=== PATIENT | female | born 1995 | race Caucasian/White ===

== ENCOUNTER 2017-01-02 18:46 | Emergency (ER) | payer OTHER ==
[2017-01-02 18:53] VITALS: BP 136/61; PULSE 95; TEMP 98; BMI 21.5
--- NOTE | 2017-01-02 19:36 | PDOC ---
History of Present Illness - General Chief Complaint: Respiratory Stated Complaint: COLD SYMPTOMS Time Seen by Provider: 01/02/17 19:30 History Source: Patient Exam Limitations: No Limitations - History of Present Illness Initial Comments: CHIEF COMPLAINT: 21 y/o afebrile female with PMH asthma c/o cold symptoms since yesterday. HISTORY OF PRESENT ILLNESS: The patient states yesterday she began having a dry cough, runny nose and fever. She states today the front of her chest started hurting every time she coughs. She has been taking tylenol for the fever and has been using her albuterol nebulizer once daily since yesterday. She states she went to [facility] yesterday where they tested her for the flu and it was negative. They suggested supportive care measures and a z-pack for bronchitis but she did not fill the zpack. She is a smoker. Vital signs on arrival are notable for pulse of 95. REVIEW OF SYSTEMS: GENERAL/CONSTITUTIONAL: +fever. No weakness. No weight change. HEAD, EYES, EARS, NOSE AND THROAT: No change in vision. No ear pain or discharge. +sore throat. +runny nose. CARDIOVASCULAR: No chest pain or shortness of breath. RESPIRATORY: +dry cough. No wheezing or hemoptysis. GASTROINTESTINAL: No abd pain, nausea, vomiting, diarrhea. GENITOURINARY: No dysuria, frequency, or change in urination. MUSCULOSKELETAL: No joint or muscle swelling or pain. No neck or back pain. SKIN: No rash or easy bruising. NEUROLOGIC: No headache, vertigo, loss of consciousness, or loss of sensation. PHYSICAL EXAM: GENERAL: The patient is awake, alert, and fully oriented, in no acute distress. She is non toxic and well appearing. HEAD: Normal with no signs of trauma. NECK: No anterior cervical lymphadenopathy. ENT: Pupils equal, round and reactive to light, extraocular movements intact, sclera anicteric, conjunctiva clear. Posterior pharyngeal erythema without tonsilar edema or exudate noted. Uvula midline. LUNGS: Clear to auscultation bilaterally. No wheezing, rhonchi, rales or crackles. Normal excursion. No respiratory distress or use of accessory muscles. CV: RRR, S1/S2, no MRG. Cap refill < 2 sec. ABDOMEN: Soft, non-distended, non-tender even to deep palpation, no hepatomegaly or splenomegaly, no masses. EXTREMITIES: Normal range of motion, no edema. NEUROLOGICAL: Normal speech, normal gait. CN II-XII grossly intact. PSYCH: Normal mood, normal affect. SKIN: Warm, dry, normal turgor, no rashes or lesions noted. Past History - Past Medical History Allergies/Adverse Reactions: Allergies Allergy/AdvReac Type Severity Reaction Status Date / Time shellfish derived Allergy Hives Verified 01/02/17 18:50 Home Medications: Ambulatory Orders NK [No Known Home Medication] 01/22/16 Asthma: Yes - Reproductive History (#): 2 Para: 0 Spontaneous : 2 - Psycho/Social/Smoking Cessation Hx Anxiety: No Suicidal Ideation: No Smoking History: Current every day smoker Have you smoked in the past 12 months: No Number of Cigarettes Smoked Daily: 4 Information on smoking cessation initiated: No Hx Alcohol Use: No Drug/Substance Use Hx: No Substance Use Type: None *Physical Exam - Vital Signs Last Vital Signs Temp Pulse Resp BP Pulse Ox 98 F 95 H 18 136/61 100 01/02/17 18:50 01/02/17 18:50 01/02/17 18:50 01/02/17 18:50 01/02/17 18:50 Medical Decision Making - Medical Decision Making A/P: 21 y/o afebrile female with symptoms of URI for the past 2 days. The patient was seen at [facility] ER yesterday, tested negative for the flu and is here today because symptoms continue. Will run hcg and give tylenol PO. Reassured the patient she has a viral URI, and her symptoms could last up to 2 weeks. Suggested Motrin every 6 hours for fever/pain, robitussin for cough, albuterol nebs every 4 hours if needed, plenty of fluids and rest, and no smoking while sick. instructed her to return to the ER with any worsening or concerning symptoms. The patient verbalizes understanding of all instructions, has no further questions and is awaiting discharge. *DC/Admit/Observation/Transfer Diagnosis at time of Disposition: Upper respiratory infection Qualifiers: URI type: unspecified URI Qualified Code(s): J06.9 - Acute upper respiratory infection, unspecified - Discharge Dispostion Disposition: HOME Condition at time of disposition: Good - Patient Instructions Printed Discharge Instructions: DI for Viral Upper Respiratory Infection -- Adult Additional Instructions: Discharge Instructions: -Take 400mg of over the counter motrin for fever and pain every 6 hours with food -Take over the counter robitussin for cough -Use your nebulizer if needed for asthma symptoms every 4 hours -Drink plenty of fluids -Get plenty of rest -Do not smoke while you are recovering -Return to the ER with any worsening or concerning symptoms
[2017-01-02] MEDS ORDERED: ACETAMINOPHEN 325 MG TABLET (FP) PO ONE (21:12)
[2017-01-02] MEDS ORDERED: ACETAMINOPHEN 325 MG TABLET (FP) ONE (21:13)
== END 2017-01-02 21:20 | disposition home or self-care (01) ==
LOC: JERFT 18:46
DX: J06.9 Acute upper respiratory infection, unspecified (principal); B97.89 Other viral agents as the cause of diseases classified elsewhere
CPT/HCPCS: 84703; 99281-25

== ENCOUNTER 2017-04-11 12:28 | Emergency (ER) | payer OTHER ==
[2017-04-11 12:33] VITALS: BP 102/57; BMI 23.8
[2017-04-11] MEDS ORDERED: KETOROLAC TROMETHAMINE 30 MG/1 ML VIAL IVPUSH ONE (13:48)
[2017-04-11] MEDS ORDERED: SODIUM CHLORIDE 0.9% 500 ML INFUS.BAG IV ONE (13:48)
[2017-04-11] MEDS ORDERED: DEXAMETHASONE SOD PHOSPHATE 10 MG/1 ML VIAL IVPB ONE (13:48)
[2017-04-11 14:04] LABS: MCHC 32.7 g/dl (32.0-36.0); MEAN CELL VOLUME 91.6 fl (80-96); MEAN PLT VOLUME 7.4 fl (7.5-11.1); PLATELET COUNT 294 K/MM3 (134-434); WHITE BLOOD COUNT 15.6 K/mm3 (4.0-10.0)
[2017-04-11] MEDS ORDERED: IBUPROFEN 400 MG TABLET (FP) PO ONE ×2 (14:07→14:20)
[2017-04-11 14:09] LABS: URINE APPEARANCE SLCLOUDY; URINE BILIRUBIN NEGATIVE (NEGATIVE); URINE BLOOD NEGATIVE (NEGATIVE); URINE COLOR YELLOW; URINE GLUCOSE (UA) NEGATIVE (NEGATIVE); URINE KETONE 1+ (NEGATIVE); URINE NITRITE NEGATIVE (NEGATIVE); URINE PROTEIN NEGATIVE (NEGATIVE); URINE UROBILINOGEN NEGATIVE mg/dL (0.2-1.0)
[2017-04-11 14:11] LABS: URINE LEUK ESTERASE 2+ (NEGATIVE)
[2017-04-11 14:22] LABS: URINE MUCUS RARE; URINE RBC 2 /hpf (0-3); URINE WBC 15 /hpf (3-5)
[2017-04-11 14:33] LABS: ANION GAP 6 (8-16); CALCIUM 8.6 mg/dL (8.5-10.1); CO2 28 mmol/L (21-32); CREATININE 0.6 mg/dL (0.55-1.02); GLUCOSE,RANDOM 92 mg/dL (74-106)
[2017-04-11] MEDS ORDERED: DEXAMETHASONE SOD PHOSPHATE 10 MG/1 ML VIAL IM ONE (15:50)
[2017-04-11] MEDS ORDERED: DEXAMETHASONE SOD PHOSPHATE 10 MG/1 ML VIAL ONE (15:52)
--- NOTE | 2017-04-11 15:53 | PDOC ---
History of Present Illness - General Chief Complaint: Sore Throat Stated Complaint: SWOLLEN TONSILLS Time Seen by Provider: 04/11/17 13:30 History Source: Patient Exam Limitations: No Limitations - History of Present Illness Initial Comments: 04/11/17 15:55 CC sore throat with swollen tonsils; this has happen multiple times wo ENT evaluation; with fever Timing/Duration: 24 hours Severity: severe Associated Symptoms: reports: fever/chills, malaise. denies: chest pain, cough , diaphoresis, nausea/vomiting, rash Past History - Past Medical History Allergies/Adverse Reactions: Allergies Allergy/AdvReac Type Severity Reaction Status Date / Time shellfish derived Allergy Hives Verified 04/11/17 12:31 Home Medications: Ambulatory Orders Penicillin V Potassium [Pen Vee K -] 500 mg PO TID #21 tablet 04/11/17 Asthma: Yes - Reproductive History (#): 2 Para: 0 Spontaneous : 2 - Psycho/Social/Smoking Cessation Hx Anxiety: No Suicidal Ideation: No Smoking History: Current every day smoker Have you smoked in the past 12 months: Yes Number of Cigarettes Smoked Daily: 9 Information on smoking cessation initiated: No Hx Alcohol Use: No Drug/Substance Use Hx: No Substance Use Type: None Review of Systems - Review of Systems Constitutional: Yes: Chills, Fever, Malaise HEENTM: Yes: Nose Pain, Throat Pain, Throat Swelling, Mouth Pain. No: Nose Congestion, Nose Bleeding, Hearing Loss Respiratory: No: Symptoms reported, Cough, Wheezing Cardiac (ROS): No: Symptoms Reported ABD/GI: No: Symptoms Reported, Nausea, Vomiting *Physical Exam - Vital Signs Last Vital Signs Temp Pulse Resp BP Pulse Ox 100.8 F H 121 H 18 102/57 100 04/11/17 12:31 04/11/17 12:31 04/11/17 12:31 04/11/17 12:31 04/11/17 12:31 - Physical Exam General Appearance: Yes: Appropriately Dressed. No: Apparent Distress HEENT: positive: Tonsillar Exudate, Tonsillar Erythema, Nasal Congestion, Other (large kissing tonsils bilateral with exudate). negative: Normal ENT Inspection , TMs Normal, Rhinorrhea, Sinus Tenderness Neck: positive: Lymphadenopathy (R), Lymphadenopathy (L) Respiratory/Chest: positive: Lungs Clear. negative: Accessory Muscle Use ED Treatment Course - LABORATORY CBC & Chemistry Diagram: 04/11/17 14:00 04/11/17 14:00 - ADDITIONAL ORDERS Additional order review: Laboratory Results 04/11/17 04/11/17 14:00 14:00 Sodium 134 L Potassium 4.2 Chloride 100 Carbon Dioxide 28 Anion Gap 6 L BUN 9 Creatinine 0.6 Random Glucose 92 Calcium 8.6 Urine Color Yellow Urine Appearance Slcloudy Urine pH 5.0 Urine Protein Negative Urine Glucose (UA) Negative Urine Ketones 1+ H Urine Blood Negative Urine Nitrite Negative Urine Bilirubin Negative Urine Urobilinogen Negative Ur Leukocyte Esterase 2+ H Urine RBC 2 Urine WBC 15 Ur Epithelial Cells Few Urine Mucus Rare Urine HCG, Qual Negative 04/11/17 14:00 Group A Strep Rapid Antigen - Final Throat 04/11/17 14:00 RBC 4.32 MCV 91.6 MCHC 32.7 RDW 14.0 MPV 7.4 L - Medications Given in the ED: ED Medications Discontinued Medications Generic Name Dose Route Start Last Admin Trade Name Freq PRN Reason Stop Dose Admin Dexamethasone Sodium Phosphate 10 mg 04/11/17 13:48 04/11/17 14:00 Decadron Injection - IVPB 04/11/17 13:49 Not Given ONCE ONE Ibuprofen 400 mg 04/11/17 14:07 04/11/17 14:21 Motrin - PO 04/11/17 14:08 400 mg ONCE ONE Administration Ketorolac Tromethamine 30 mg 04/11/17 13:48 04/11/17 14:01 Toradol Injection - IVPUSH 04/11/17 13:49 Not Given ONCE ONE Sodium Chloride 1,000 ml 04/11/17 13:48 04/11/17 14:00 Normal Saline - IV 04/11/17 13:49 Not Given ONCE ONE Medical Decision Making - Medical Decision Making 04/11/17 15:58 feeling much better post motrin and decadron; will suggest follow up with ENT YUVAL *DC/Admit/Observation/Transfer Diagnosis at time of Disposition: Recurrent acute tonsillitis - Discharge Dispostion Disposition: HOME Condition at time of disposition: Stable Admit: No - Prescriptions Prescriptions: Penicillin V Potassium [Pen Vee K -] 500 mg PO TID #21 tablet - Referrals Referrals: Carroll Khalil MD [Staff Physician] - - Patient Instructions Additional Instructions: please call and see Dr Remi BARAKAT for reevaluation of reoccuring swollen tonsils; gargle; motrin 400mg for pain and fever - Post Discharge Activity Work/School Note: Back to Work
[2017-04-11 15:58] VITALS: PULSE 112; TEMP 98.7
== END 2017-04-11 16:13 | disposition home or self-care (01) ==
LOC: JERFT 12:28
PROC: 3E023GC Introduction of Other Therapeutic Substance into Muscle, Percutaneous Approach (ICD-10-PCS; principal; 2017-04-11)
DX: J03.91 Acute recurrent tonsillitis, unspecified (principal); F17.210 Nicotine dependence, cigarettes, uncomplicated
CPT/HCPCS: 36415; 80048; 81003; 81015; 84703; 85027; 86308; 87070; 87430; 99282-25

== ENCOUNTER 2017-09-25 14:01 | Emergency (ER) | payer OTHER ==
[2017-09-25 14:06] VITALS: BP 102/60; TEMP 98.4; BMI 22.3
--- NOTE | 2017-09-25 18:58 | PDOC ---
History of Present Illness <RoberSarah Carrie - Last Filed: 09/25/17 19:20> - General History Source: Patient Exam Limitations: No Limitations - History of Present Illness Initial Comments: 09/25/17 21:19 Patient is a 22 year old female with a significant past medical history of Asthma, Respitory acid reflux, who presents to the ED with complaints of diffuse abdominal pain that began 2 weeks ago. Patient reports experiencing chronic diffuse abdominal pain that began 2 weeks ago suddenly. She reports eating bland food and drinking no alcohol for 4 days after initial pain began with no relief. She reports experiencing multiple episodes of vomiting since 5am this morning, stating only acid was coming up. Patient states she experienced intermittent diarrhea 2 weeks ago for about 4 days before subsiding. Patient states she saw her PCP sunday as well as yesterday and initially thought pain to be due to pancreatitis and was referred to see GI specialist Dr. Steward for abdominal pain. Patient states she took test this morning and results indicated negative. She currently wants a Drs note and GI follow up, and currently denies any lab work to be done. Denies chest pain, Sob. Denies fever, chills. Denies constipation, dysuria, hematuria. Denies contact with sick individuals, out of state travel. Denies any other symptoms. Allergies: Shellfish Social history: Current smoker. Current alcohol use. No illicit drugs. Surgical history: None PMD: Not on staff. <Yadiel Perdomo - Last Filed: 09/25/17 21:24> - General Chief Complaint: Pain Stated Complaint: ABD PAIN/ PCP SENT Time Seen by Provider: 09/25/17 17:58 Past History - Past Medical History Asthma: Yes COPD: No - Reproductive History (#): 2 Para: 0 Spontaneous : 2 - Suicide/Smoking/Psychosocial Hx Smoking History: Never smoked Have you smoked in the past 12 months: Yes Number of Cigarettes Smoked Daily: 9 Information on smoking cessation initiated: No Hx Alcohol Use: No Drug/Substance Use Hx: No Substance Use Type: None <RoberSarahramiro Butler - Last Filed: 09/25/17 19:20> <Yadiel Perdomo - Last Filed: 09/25/17 21:24> - Past Medical History Allergies/Adverse Reactions: Allergies Allergy/AdvReac Type Severity Reaction Status Date / Time shellfish derived Allergy Hives Verified 04/11/17 12:31 Home Medications: Ambulatory Orders Penicillin V Potassium [Pen Vee K -] 500 mg PO TID #21 tablet 04/11/17 Pantoprazole Sodium [Protonix -] 40 mg PO DAILY #7 tablet.ec 09/25/17 Review of Systems - Review of Systems Able to Perform ROS?: Yes Comments:: 09/25/17 21:23 CONSTITUTIONAL: Absent: fever, chills, diaphoresis, generalized weakness, malaise, loss of appetite HEENT: Absent: rhinorrhea, nasal congestion, throat pain, throat swelling, difficulty swallowing, mouth swelling, ear pain, eye pain, visual Changes CARDIOVASCULAR: Absent: chest pain, syncope, palpitations, irregular heart rate, lightheadedness , peripheral edema RESPIRATORY: Absent: cough, shortness of breath, dyspnea with exertion, orthopnea, wheezing, stridor, hemoptysis GASTROINTESTINAL: +Abdominal pain. +nausea. +Vomiting. Absent: abdominal distension, constipation, melena, hematochezia GENITOURINARY: Absent: dysuria, frequency, urgency, hesitancy, hematuria, flank pain, genital pain MUSCULOSKELETAL: Absent: myalgia, arthralgia, joint swelling SKIN: Absent: rash, itching, pallor HEMATOLOGIC/IMMUNOLOGIC: Absent: easy bleeding, easy bruising, lymphadenopathy, frequent infections ENDOCRINE: Absent: unexplained weight gain, unexplained weight loss, heat intolerance, cold intolerance NEUROLOGIC: Absent: headache, focal weakness or paresthesias, dizziness, unsteady gait, seizure, mental status changes, bladder or bowel incontinence PSYCHIATRIC: Absent: anxiety, depression, suicidal or homicidal ideation, hallucinations. All Other Systems: Reviewed and Negative <Yadiel Perdomo - Last Filed: 09/25/17 21:24> *Physical Exam - Vital Signs Last Vital Signs Temp Pulse Resp BP Pulse Ox 98.4 F 73 18 102/60 100 09/25/17 14:04 09/25/17 14:04 09/25/17 14:04 09/25/17 14:04 09/25/17 14:04 <Sarah Richter - Last Filed: 09/25/17 19:20> - Vital Signs Last Vital Signs Temp Pulse Resp BP Pulse Ox 98.4 F 71 18 102/60 100 09/25/17 19:32 09/25/17 19:32 09/25/17 19:32 09/25/17 19:32 09/25/17 19:32 - Physical Exam Comments: 09/25/17 21:24 GENERAL: Well developed, well nourished. Awake and alert. No acute distress. HEENT: Normocephalic, atraumatic. PERRLA, EOMI. No conjunctival pallor. Sclera are non- icteric. Moist mucous membranes. Oropharynx is clear. NECK: Supple. Full ROM. No JVD. Carotid pulses 2+ and symmetric, without bruits. No thyromegaly. No lymphadenopathy. CARDIOVASCULAR: Regular rate and rhythm. No murmurs, rubs, or gallops. Distal pulses are 2+ and symmetric. PULMONARY: No evidence of respiratory distress. Lungs clear to auscultation bilaterally. No wheezing, rales or rhonchi. ABDOMINAL: Soft. Non-tender. Non-distended. No rebound or guarding. No organomegaly. Normoactive bowel sounds. MUSCULOSKELETAL Normal range of motion at all joints. No bony deformities or tenderness. No CVA tenderness. EXTREMITIES: No cyanosis. No clubbing. No edema. No calf tenderness. SKIN: Warm and dry. Normal capillary refill. No rashes. No jaundice. NEUROLOGICAL: Alert, awake, appropriate. Cranial nerves 2-12 intact. No deficits to light touch and temperature in face, upper extremities and lower extremities. No motor deficits in the in face, upper extremities and lower extremities. Normoreflexic in the upper and lower extremities. Normal speech. Toes are down-going bilaterally. Gait is normal without ataxia. PSYCHIATRIC: Cooperative. Good eye contact. Appropriate mood and affect. <Yadiel Perdomo - Last Filed: 09/25/17 21:24> Medical Decision Making - Medical Decision Making 09/25/17 19:16 22 yo female with 2 week h/o acid reflex and abd blaoting is currently eating and drinking coffee. she is not in any distress -she has seen by her PCP twice in last week for same complaint and she was referred to GI DR Steward -she is refusing lab work and states she took a OTC test and it was negative -she states she just wants to leave to go to work and she needs a note for work -abd exam benign imp gerd RX protonoix plan keep appt with communications systems engineer <Sarah Richter - Last Filed: 09/25/17 19:20> *DC/Admit/Observation/Transfer <Sarah Richter - Last Filed: 09/25/17 19:20> - Attestations Scribe Attestion: 09/25/17 21:24 Documentation prepared by Yadiel Perdomo, acting as medical record clerk for Sarah Richter MD/DO. <Yadiel Perdomo - Last Filed: 09/25/17 21:24> Diagnosis at time of Disposition: GERD (gastroesophageal reflux disease) Qualifiers: Esophagitis presence: with esophagitis Qualified Code(s): K21.0 - Gastro- esophageal reflux disease with esophagitis - Discharge Dispostion Disposition: HOME Condition at time of disposition: Stable - Prescriptions Prescriptions: Pantoprazole Sodium [Protonix -] 40 mg PO DAILY #7 tablet.ec - Referrals Referrals: Hung Steward MD [Staff Physician] - - Patient Instructions Printed Discharge Instructions: DI for Gastroesophageal Reflux Disease (GERD) Additional Instructions: please followup with the communications systems engineer return for worsening symptoms 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
[2017-09-25 19:33] VITALS: PULSE 71
== END 2017-09-25 21:02 | disposition home or self-care (01) ==
LOC: JER 14:01
DX: K21.0 Gastro-esophageal reflux disease with esophagitis (principal)
CPT/HCPCS: 99281-25

== ENCOUNTER 2017-10-24 12:12 | Emergency (ER) | payer SELFPAY ==
[2017-10-24 12:24] VITALS: BP 110/63; PULSE 110; TEMP 98.6; BMI 23.8
--- NOTE | 2017-10-24 13:41 | PDOC ---
History of Present Illness - General Chief Complaint: Respiratory Stated Complaint: FEVER, BACK PAIN Time Seen by Provider: 10/24/17 13:17 History Source: Patient Exam Limitations: No Limitations - History of Present Illness Initial Comments: 10/24/17 13:40 22 year old female with no surgical history and history of asthma present with reports of sorethroat, fever, nausea and productive cough x 3 days. States taking tylenol cold and sinus with no complete relief. 10/24/17 13:45 Timing/Duration: reports: getting worse Severity: reports: mild Possible Cause: Yes: unknown cause Modifying Factors: improves with: other (tylenol cold and sinus) Aspirin Received prior to arrival: Yes: no aspirin today ASA Contraindications(Core Measure): No: Allergy Beta Sofi Contraindications(Core Measure): No: Not Prescribed Beta Sofi Given by EMS(Core Measure): No Beta Sofi Taken at Home(Core Measure): No Beta Sofi Not Indicated at this Time(Core Measure): No Past History - Travel Traveled outside of the country in the last 30 days: No Close contact w/someone who was outside of country & ill: No - Past Medical History Allergies/Adverse Reactions: Allergies Allergy/AdvReac Type Severity Reaction Status Date / Time shellfish derived Allergy Hives Verified 10/24/17 12:24 Home Medications: Ambulatory Orders Guaifenesin Dm [Robitussin Dm -] 10 ml PO Q4H #10 cup 10/24/17 Ibuprofen 600 mg PO TID #30 tablet 10/24/17 Asthma: Yes COPD: No - Reproductive History (#): 2 Para: 0 Spontaneous : 2 - Suicide/Smoking/Psychosocial Hx Smoking History: Current every day smoker Have you smoked in the past 12 months: Yes Number of Cigarettes Smoked Daily: 2 Information on smoking cessation initiated: No Hx Alcohol Use: No Drug/Substance Use Hx: No Substance Use Type: None Review of Systems - Review of Systems Able to Perform ROS?: Yes Is the patient limited Amharic proficient: No Constitutional: Yes: Fever, Malaise. No: Chills HEENTM: Yes: Throat Pain. No: Nose Congestion, Difficulty Swallowing Respiratory: No: Orthopnea, Wheezing Cardiac (ROS): No: Chest Pain, Edema ABD/GI: No: Nausea, Poor Appetite, Poor Fluid Intake : No: Burning, Incontinence Musculoskeletal: No: Muscle Weakness Integumentary: No: Bruising, Erythema *Physical Exam - Vital Signs Last Vital Signs Temp Pulse Resp BP Pulse Ox 98.6 F 110 H 20 110/63 98 10/24/17 12:21 10/24/17 12:21 10/24/17 12:21 10/24/17 12:21 10/24/17 12:21 - Physical Exam General Appearance: Yes: Nourished, Appropriately Dressed. No: Apparent Distress HEENT: positive: Pharyngeal Erythema, Tonsillar Erythema Neck: positive: Supple. negative: Lymphadenopathy (R), Lymphadenopathy (L) Respiratory/Chest: positive: Lungs Clear, Normal Breath Sounds. negative: Respiratory Distress Cardiovascular: positive: Regular Rhythm, Regular Rate, S1, S2 Extremity: positive: Normal Capillary Refill Neurologic: positive: medical laboratory scientist II-XII NML intact, Fully Oriented, Alert Medical Decision Making - Medical Decision Making 10/24/17 13:49 22 year old female with flu-like symptoms x 3 days rapid strep and throat culture sent *DC/Admit/Observation/Transfer Diagnosis at time of Disposition: Upper respiratory infection Qualifiers: URI type: unspecified viral URI Qualified Code(s): J06.9 - Acute upper respiratory infection, unspecified - Discharge Dispostion Disposition: HOME Condition at time of disposition: Good Admit: No - Prescriptions Prescriptions: Guaifenesin Dm [Robitussin Dm -] 10 ml PO Q4H #10 cup Ibuprofen 600 mg PO TID #30 tablet - Referrals - Patient Instructions Printed Discharge Instructions: DI for Viral Upper Respiratory Infection -- Adult Additional Instructions: Please drink plenty fluids, rest -call primary physician for follow up appointment -Take ibuprofen or tylenol for fever -return to emergency department for worsening symptoms - Post Discharge Activity Forms/Work/School Notes: Back to Work
== END 2017-10-24 15:22 | disposition home or self-care (01) ==
LOC: JERFT 12:12
DX: J06.9 Acute upper respiratory infection, unspecified (principal)
CPT/HCPCS: 87070; 87430; 99281-25

== ENCOUNTER 2019-10-07 21:29 | Emergency (ER) | payer OTHER ==
[2019-10-07 21:34] VITALS: BMI 22.8
--- NOTE | 2019-10-08 00:40 | PDOC ---
Attending Attestation - Resident Resident Name: Jay Flanagan - ED Attending Attestation I have performed the following: I have examined & evaluated the patient, The case was reviewed & discussed with the resident, I agree w/resident's findings & plan - HPI HPI: 10/08/19 03:31 see resident hpi - Physicial Exam PE: 10/08/19 03:31 see resident exam - Medical Decision Making 10/08/19 03:31 24-year-old female with pelvic pressure and hematuria Ultrasound of the pelvis as well as CT scan were performed Patient has a right ureteral stone, 4 mm as well as left intrarenal stone Patient will be given Rocephin and Zithromax, GC and Chlamydia cultures pending at patient's request She will be discharged on Keflex and follow-up with urology
--- NOTE | 2019-10-08 00:49 | PDOC ---
History of Present Illness - General Chief Complaint: Hematuria Stated Complaint: HEMATURIA/VOMITING Time Seen by Provider: 10/08/19 00:31 - History of Present Illness Initial Comments: 10/08/19 00:43 Ms. Silva is a 24 yo female w/ pmh of Asthma and GERD who presents for evaluation of 1 1/2 month history of L Lower quadrant abdominal pain. Patient reports she has additionally had 4 days of hematuria. Patient presented to OB/ [facility] who checked her for STD's and recommended outpatient US however patient was unable to complete. Ms. Silva also endorses intermittent diarrhea over this time period as well. Denies other symptoms at this time. The patient denies chest pain, shortness of breath, headache and dizziness. Denies fever, chills, nausea, vomit, and constipation. Past History - Past Medical History Allergies/Adverse Reactions: Allergies Allergy/AdvReac Type Severity Reaction Status Date / Time shellfish derived Allergy Hives Verified 10/07/19 21:34 Home Medications: Ambulatory Orders Cephalexin [Keflex] 500 mg PO BID #14 capsule 10/08/19 NK [No Known Home Medication] 10/08/19 Phenazopyridine HCl [Pyridium] 200 mg PO TID #6 tablet 10/08/19 Asthma: Yes COPD: No - Reproductive History (#): 2 Para: 0 Spontaneous : 2 - Psycho Social/Smoking Cessation Hx Smoking History: Never smoked Have you smoked in the past 12 months: Yes Number of Cigarettes Smoked Daily: 2 Hx Alcohol Use: No Drug/Substance Use Hx: No Substance Use Type: None Review of Systems - Review of Systems Comments:: 10/08/19 00:49 GENERAL/CONSTITUTIONAL: No fever or chills. No weakness. HEAD, EYES, EARS, NOSE AND THROAT: No change in vision. No ear pain or discharge. No sore throat. CARDIOVASCULAR: No chest pain or shortness of breath RESPIRATORY: No cough, wheezing, or hemoptysis. GASTROINTESTINAL: +Frequent Diarrhea. LLQ abdominal pain. No nausea, vomiting, or constipation. GENITOURINARY: +Hematuria w/ change in vaginal odor reported. MUSCULOSKELETAL: No joint or muscle swelling or pain. No neck or back pain. SKIN: No rash NEUROLOGIC: No headache, vertigo, loss of consciousness, or change in strength/ sensation. ENDOCRINE: No increased thirst. No abnormal weight change HEMATOLOGIC/LYMPHATIC: No anemia, easy bleeding, or history of blood clots. ALLERGIC/IMMUNOLOGIC: No hives or skin allergy. *Physical Exam - Vital Signs Last Vital Signs Temp Pulse Resp BP Pulse Ox 97.5 F L 61 18 101/45 L 98 10/07/19 21:31 10/07/19 21:31 10/07/19 21:31 10/07/19 21:31 10/07/19 21:31 - Physical Exam 10/08/19 00:50 GENERAL: Awake, alert, and fully oriented, in no acute distress HEAD: No signs of trauma, normocephalic, atraumatic EYES: PERRLA, EOMI, sclera anicteric, conjunctiva clear ENT: Auricles normal inspection, hearing grossly normal, nares patent, oropharynx clear without exudates. Moist mucosa NECK: Normal ROM, supple, no lymphadenopathy, JVD, or masses LUNGS: No distress, speaks full sentences, clear to auscultation bilaterally HEART: Regular rate and rhythm, normal S1 and S2, no murmurs, rubs or gallops, peripheral pulses normal and equal bilaterally. ABDOMEN: Soft, nontender, normoactive bowel sounds. No guarding, no rebound. No masses EXTREMITIES: Normal inspection, Normal range of motion, no edema. No clubbing or cyanosis. NEUROLOGICAL: Cranial nerves II through XII grossly intact. Normal speech, normal gait, no focal sensorimotor deficits SKIN: Warm, Dry, normal turgor, no rashes or lesions noted. VAGINAL: +AC tenderness noted. No CMT, no masses, no blood in vaginal vault. Physiologic discharge noted. ED Treatment Course - LABORATORY CBC & Chemistry Diagram: 10/08/19 00:42 10/08/19 00:42 - RADIOLOGY Radiology Studies Ordered: Category Date Time Status TRANSVAGINAL ULTRASOUND US [US] Stat Ultrasound 10/08/19 00:39 Ordered Medical Decision Making - Medical Decision Making 10/08/19 02:57 Ms. Silva is a 24 yo female w/ pmh as described who presents for evaluation of symptoms concerning for torsion vs. infection vs. nephrolithiasis. Patient evaluated with labs/US/CT. US normal. CT significant for 4mm R UPJ stone w/out hydro as well as small L renal stone. 10/08/19 03:27 Patient UA significant for mild UTI as below. Patient ABX sent. Patient will f/ u w/ urology as needed for further evaluation. Discharging to home. Discharge - Discharge Information Problems reviewed: Yes Clinical Impression/Diagnosis: Nephrolithiasis Disposition: HOME - Additional Discharge Information Prescriptions: Cephalexin [Keflex] 500 mg PO BID #14 capsule Phenazopyridine HCl [Pyridium] 200 mg PO TID #6 tablet - Follow up/Referral Referrals: Carroll Petersen MD [Staff Physician] - - Patient Discharge Instructions Patient Printed Discharge Instructions: DI for Kidney Stones Additional Instructions: You were evaluated today in the ER for your pain and found to have a small UTI as well as kidney stones. We sent antibiotics to your pharmacy. Please take all medications as proscribed. Return to ER if any further pain, fever, chills, or other concerning symptoms. - Post Discharge Activity
[2019-10-08 01:20] LABS: EPI CELLS 4.5 /HPF (0-5/HPF); HYALINE CASTS 1 /lpf (0-8); PH,URINE 7.5 (5.0-8.0); URINE APPEARANCE CLEAR; URINE BACTERIA 119.4 /hpf (NEGATIVE); URINE BILIRUBIN NEGATIVE (NEGATIVE); URINE COLOR YELLOW; URINE GLUCOSE (UA) NEGATIVE (NEGATIVE); URINE KETONE NEGATIVE (NEGATIVE); URINE LEUK ESTERASE 1+ (NEGATIVE); URINE NITRITE NEGATIVE (NEGATIVE); URINE PROTEIN NEGATIVE (NEGATIVE); URINE RBC 3 /hpf (0-4); URINE UROBILINOGEN 0.2 mg/dL (0.2-1.0); URINE WBC 11 /hpf (0-5)
[2019-10-08 01:21] LABS: BASO % 0.3 % (0-2.0); EOS % 4.6 % (0-4.5); HEMOGLOBIN 13.2 GM/dL (10.7-15.3); LYMPH % 55.2 % (8-40); MCH 31.8 pg (25.7-33.7); MCHC 33.8 g/dl (32.0-36.0); MEAN CELL VOLUME 94.2 fl (80-96); MEAN PLT VOLUME 8.8 fl (7.5-11.1); MONO % 7.3 % (3.8-10.2); NEUT % 32.6 % (42.8-82.8); PLATELET COUNT 240 K/MM3 (134-434); RBC 4.14 M/mm3 (3.60-5.2); RDW 13.3 % (11.6-15.6); WHITE BLOOD COUNT 5.8 K/mm3 (4.0-10.0)
[2019-10-08] MEDS ORDERED: SODIUM CHLORIDE 1,000 ML IV STA (01:37)
[2019-10-08 01:40] LABS: ALBUMIN 3.8 g/dl (3.4-5.0); BILIRUBIN,TOTAL 0.4 mg/dL (0.2-1); BLOOD UREA NITROGEN 12.6 mg/dL (7-18); CALCIUM 8.8 mg/dL (8.5-10.1); CREATININE 0.8 mg/dL (0.55-1.3); TOT PROT 7.4 g/dl (6.4-8.2)
[2019-10-08] MEDS ORDERED: KETOROLAC TROMETHAMINE 30 MG/1 ML VIAL IVPUSH ONE (03:03)
[2019-10-08] MEDS ORDERED: KETOROLAC TROMETHAMINE 30 MG/1 ML VIAL ONE (03:22)
[2019-10-08] MEDS ORDERED: AZITHROMYCIN 500 MG TABLET PO ONE (03:30)
[2019-10-08] MEDS ORDERED: CEFTRIAXONE 1,000 MG in DEXTROSE 5%-WATER - 50 ML IVPB ONE (03:30)
[2019-10-08] MEDS ORDERED: CEFTRIAXONE 1 GM/50 ML BAG ONE (03:31)
[2019-10-08] MEDS ORDERED: AZITHROMYCIN 250 MG TABLET ONE (03:31)
[2019-10-08 03:42] VITALS: BP 112/65; PULSE 62; TEMP 98
== END 2019-10-08 03:50 | disposition home or self-care (01) ==
LOC: JER 21:29
PROC: 3E0337Z Introduction of Electrolytic and Water Balance Substance into Peripheral Vein, Percutaneous Approach (ICD-10-PCS; principal; 2019-10-07)
PROC: 3E03329 Introduction of Other Anti-infective into Peripheral Vein, Percutaneous Approach (ICD-10-PCS; 2019-10-07)
PROC: 3E0333Z Introduction of Anti-inflammatory into Peripheral Vein, Percutaneous Approach (ICD-10-PCS; 2019-10-07)
DX: N39.0 Urinary tract infection, site not specified (principal); N20.0 Calculus of kidney; Z91.013 Allergy to seafood
CPT/HCPCS: 36415; 74176-TC; 76830-TC; 80053; 81003; 84703; 85025; 87086; 87491; 87591; 96361; 96365; 96375; 99283-25; J7030

== ENCOUNTER 2019-10-14 19:04 | Emergency (ER) | payer OTHER ==
--- NOTE | 2019-10-14 20:09 | PDOC ---
Rapid Medical Evaluation Time Seen by Provider: 10/14/19 20:03 Medical Evaluation: Allergies Allergy/AdvReac Type Severity Reaction Status Date / Time shellfish derived Allergy Hives Verified 10/07/19 21:34 10/14/19 20:05 Pt presents for back pain. She was diagnosed with a Kidney stone on 10/08/19. She is still having a lot of pain and blood in her urine. She was supposed to have a procedure with Dr. Boston, but it was delayed bc pt took ibuprofen. Here for blood work and repeat CT? Exam: R CVA tenderness Orders: labs, urine Pt to proceed to the ER for further evaluation Discharge Disposition - Diagnosis Kidney stone - Referrals - Patient Instructions - Post Discharge Activity
[2019-10-14] MEDS ORDERED: SODIUM CHLORIDE 1,000 ML IV STA (20:10)
[2019-10-14 20:11] VITALS: TEMP 98.4; BMI 21.9
[2019-10-14] MEDS ORDERED: ACETAMINOPHEN 1000 MG/100 ML VIAL (NON FORMULARY) IVPB ONE (20:12)
--- NOTE | 2019-10-14 21:54 | PDOC ---
History of Present Illness - General Chief Complaint: Hematuria Stated Complaint: BLOOD WORK/CAT SCAN Time Seen by Provider: 10/14/19 20:03 History Source: Patient Exam Limitations: No Limitations - History of Present Illness Initial Comments: 24 year old female with PMH nephrolithiasis, asthma presented to ED for right sided flank pain and hematuria x6 days. Pt reported she was seen and evaluated at [facility] 10/08/19, was diagnosed with a right sided kidney stone and UTI, was discharged with antibiotics and urology F/U. She reported she has been taking ibuprofen for the pain. She reported that she was seen by Urology, Dr. Petersen today, was told that she will require lithotripsy, was scheduled for . She was scheduled to have outpatient blood work and CT performed tomorrow, but expressed to Dr. Petersen her persistent pain, prompting him to send her to the Emergency Department "for blood work and a repeat cat scan". She reported she was later told she will be unable to have the lithotripsy performed because she has been taking ibuprofen, and she is required to not take it for 7 days. She denied fever, chills, nausea, vomiting, diarrhea , chest pain, shortness of breath, dysuria. ROS General: denied fever, chills, generalized weakness. HEENT: denied sore throat, rhinorrhea, ear pain. Cardiovascular: denied chest pain, palpitations, syncope, diaphoresis. Respiratory: denied shortness of breath, cough, sputum production, hemoptysis. Gastrointestinal: denied abdominal pain, nausea, vomiting, diarrhea, constipation, blood in stool. Genitourinary: admitted to flank pain, hematuria. denied dysuria, increased urinary frequency, urinary incontinence. Back: denied back pain. Musculoskeletal: denied joint pain, muscle pain, joint swelling. Neurological: denied headache, dizziness, numbness, tingling, weakness. Integumentary: denied rash, laceration, abrasion. Hematologic/Lymphatic: denied bruising or bleeding. PE Constitutional: Well-nourished, Well-developed, appearing stated age. ambulatory. HEENT: head is normocephalic, atraumatic. EOMI. PERRLA. Neck: supple. Full ROM. Cardiovascular: regular heart rhythm. Normal S1 and S2. no murmurs. no pericardial friction rub. Respiratory: clear to auscultation bilaterally. no crackles, rhonchi or wheezing. no stridor. Gastrointestinal: soft, flat, nontender. normal bowel sounds. no rebound, guarding, or masses. Back: positive right sided CVA tenderness. Extremities: peripheral pulses intact and equal. no lower extremity edema noted. Neurological: CN 2-12 grossly intact. moves all four extremities. Psych: awake, alert, oriented x3. follows commands. answers questions appropriately. Past History - Past Medical History Allergies/Adverse Reactions: Allergies Allergy/AdvReac Type Severity Reaction Status Date / Time shellfish derived Allergy Hives Verified 10/07/19 21:34 Home Medications: Ambulatory Orders Cephalexin [Keflex] 500 mg PO BID #14 capsule 10/08/19 Phenazopyridine HCl [Pyridium] 200 mg PO TID #6 tablet 10/08/19 Ondansetron [Zofran Odt -] 4 mg SL TID PRN #9 od.tablet 10/15/19 Oxycodone HCl/Acetaminophen [Percocet 5-325 mg Tablet] 1 tab PO BID PRN #20 tablet MDD 2 tabs 10/15/19 - Psycho Social/Smoking Cessation Hx Number of Cigarettes Smoked Daily: 2 *Physical Exam - Vital Signs Last Vital Signs Temp Pulse Resp BP Pulse Ox 98.4 F 65 20 118/72 97 10/14/19 20:03 10/14/19 20:03 10/14/19 20:03 10/14/19 20:03 10/14/19 20:03 ED Treatment Course - LABORATORY CBC & Chemistry Diagram: 10/14/19 23:05 10/14/19 23:05 Medical Decision Making - Medical Decision Making 24 year old female with above PMH presented to ED for persistent right sided flank pain and hematuria s/p being diagnosed with a right sided 4 mm UPJ stone 10/08/19, sent to ED by Urology Dr. Singh for blood work and CT imaging. Initial Vital Signs Temp Pulse Resp BP Pulse Ox 98.4 F 65 20 118/72 97 10/14/19 20:03 10/14/19 20:03 10/14/19 20:03 10/14/19 20:03 10/14/19 20:03 Afebrile. No tachycardia. No tachypnea. No hypotension. No hypoxia on room air. Labs ordered: CBC, CMP, coags, UA/UC Imaging ordered: CT abdomen/pelvis spiral Medications ordered: tylenol IV, normal saline bolus 1000 cc once Chart review performed. 10/14/19 23:32 Urine Color Yellow 10/14/19 22:30 Urine Appearance Cloudy 10/14/19 22:30 Urine pH 7.0 (5.0-8.0) 10/14/19 22:30 Ur Specific Boykins 1.010 (1.010-1.035) 10/14/19 22:30 Urine Protein Negative (NEGATIVE) 10/14/19 22:30 Urine Glucose (UA) Negative (NEGATIVE) 10/14/19 22:30 Urine Ketones Negative (NEGATIVE) 10/14/19: Urine Blood 3+ (NEGATIVE) H 10/14/19 22:30 Urine Nitrite Negative (NEGATIVE) 10/14/19 22:30 Urine Bilirubin Negative (NEGATIVE) 10/14/19: Urine Urobilinogen 1.0 mg/dL (0.2-1.0) 10/14/19 22:30 Ur Leukocyte Esterase Negative (NEGATIVE) 10/14/19 22:30 Urine WBC (Auto) 1 /hpf (0-5) 10/14/19 22:30 Urine RBC (Auto) 118 /hpf (0-4) 10/14/19 22:30 Urine Casts (Auto) 0 /lpf (0-8) 10/14/19 22:30 U Epithel Cells (Auto) 0.8 /HPF (0-5/HPF) 10/14/19 22:30 Urine Bacteria (Auto) 19.6 /hpf (NEGATIVE) 10/14/19 22:30 Urine HCG, Qual Negative 10/14/19 22:30 10/14/19 23:39 Pt is ambulatory, able to climb in and out of bed without difficulty. 10/14/19 23:58 CBC WBC 5.2 K/mm3 (4.0-10.0) 10/14/19 23:05 RBC 4.02 M/mm3 (3.60-5.2) 10/14/19 23:05 Hgb 12.6 GM/dL (10.7-15.3) 10/14/19 23:05 Hct 37.7 % (32.4-45.2) 10/14/19 23:05 MCV 93.7 fl (80-96) 10/14/19 23:05 MCH 31.4 pg (25.7-33.7) 10/14/19 23:05 MCHC 33.5 g/dl (32.0-36.0) 10/14/19 23:05 RDW 13.4 % (11.6-15.6) 10/14/19 23:05 Plt Count 237 K/MM3 (134-434) 10/14/19 23:05 MPV 8.5 fl (7.5-11.1) 10/14/19 23:05 Absolute Neuts (auto) 2.4 K/mm3 (1.5-8.0) 10/14/19 23:05 Neutrophils % 46.3 % (42.8-82.8) D 10/14/19 23:05 Lymphocytes % 41.5 % (8-40) H D 10/14/19 23:05 Monocytes % 9.0 % (3.8-10.2) 10/14/19 23:05 Eosinophils % 2.9 % (0-4.5) 10/14/19 23:05 Basophils % 0.3 % (0-2.0) 10/14/19 23:05 Nucleated RBC % 0 % (0-0) 10/14/19 23:05 CMP Sodium 138 mmol/L (136-145) 10/14/19 23:05 Potassium 4.2 mmol/L (3.5-5.1) 10/14/19 23:05 Chloride 106 mmol/L (98-107) 10/14/19 23:05 Carbon Dioxide 24 mmol/L (21-32) 10/14/19 23:05 Anion Gap 8 MMOL/L (8-16) 10/14/19 23:05 BUN 8.9 mg/dL (7-18) 10/14/19 23:05 Creatinine 0.7 mg/dL (0.55-1.3) 10/14/19 23:05 Est GFR (CKD-EPI)AfAm 141.54 10/14/19 23:05 Est GFR (CKD-EPI)NonAf 122.12 10/14/19 23:05 Random Glucose 94 mg/dL (74-106) 10/14/19 23:05 Calcium 9.2 mg/dL (8.5-10.1) 10/14/19 23:05 Total Bilirubin 0.5 mg/dL (0.2-1) 10/14/19 23:05 AST 13 U/L (15-37) L 10/14/19 23:05 ALT 20 U/L (13-61) 10/14/19 23:05 Alkaline Phosphatase 100 U/L (45-117) 10/14/19 23:05 Total Protein 7.8 g/dl (6.4-8.2) 10/14/19 23:05 Albumin 4.0 g/dl (3.4-5.0) 10/14/19 23:05 10/15/19 01:06 CT report: Referring Physician: GAVINO HDEZ Comments: Alvino London MD wrote on Oct 15, 2019 at 12:40 AM: Referring Physician: GAVINO HDEZ Patient Name: TIM BEY THIS IS A PRELIMINARY REPORT FROM [facility] DATE OF SERVICE: 2019-10-14 23:27:52 IMAGES: 420 EXAM: CT abdomen pelvis without contrast HISTORY: Right flank pain COMPARISON: 10/08/19 FINDINGS: Lung bases are clear. The visualized cardiac chambers are normal size and configuration. The previously noted 4 mm proximal right UPJ stone has only progressed minimally distally but there is increasing mild hydronephrosis. No change in small left renal stone. Normal unenhanced liver, gallbladder, pancreas, spleen, adrenal glands . The stomach and abdominal small and large bowel are normal. There is no aortic aneurysm. There is no significant retroperitoneal lymphadenopathy. adnexal structures are normal. Urinary bladder is unremarkable. There is no pelvic free fluid. No discrete pelvic lymphadenopathy is identified. IMPRESSION: Only slight progression of a 4 mm proximal right ureteral stone with increasing, but still mild hydronephrosis. Small left renal stone. One or more of the following dose reduction techniques were used: automated exposure control, adjustment of the mA and/or kV according to patient size, use of iterative reconstructive technique. THIS DOCUMENT HAS BEEN ELECTRONICALLY SIGNED Phillip London MD 10/15/2019 00:39 EST M.D. Please call [facility] [phone] ([phone]) with questions. Alvino London MD Clinicians - Please contact [facility] with further questions at [phone] ([phone]) Patients - Please contact your Ordering Provider with questions. Pt provided with copies of results. No AMPARO, no UTI, pt appears well, stable for discharge at this time. Pt given return precautions. Pt advised to call urology today. Will prescribe percocet for pain. Advised to take extra strength tylenol for pain. Labs/CT report faxed to [phone]. Pt requested 1 percocet prior to discharge. She reported she is taking a cab home. Discharge - Discharge Information Problems reviewed: Yes Clinical Impression/Diagnosis: Kidney stone Condition: Stable Disposition: HOME - Admission No - Additional Discharge Information Prescriptions: Ondansetron [Zofran Odt -] 4 mg SL TID PRN #9 od.tablet PRN Reason: Nausea Oxycodone HCl/Acetaminophen [Percocet 5-325 mg Tablet] 1 tab PO BID PRN #20 tablet MDD 2 tabs PRN Reason: Pain Level 7 - 10 - Follow up/Referral - Patient Discharge Instructions Patient Printed Discharge Instructions: DI for Kidney Stones Additional Instructions: Follow up with your urologist within 3 days regarding your Emergency Room visit. Your care is not complete until you follow up. Bring all paperwork given to you today to your appointment. It is recommended you call your urologist in the morning and let him know the results. Take Tylenol over the counter for pain. Take as advised on label. Return to the Emergency Department for increasing pain, fever, vomiting, lightheadedness, chest pain, shortness of breath, passing out, or any other new , worsening or concerning symptoms. I have sent a prescription for Zofran (anti-nausea) to your pharmacy. Take as needed as advised on label. I have sent a prescription for Percocet to your pharmacy. Take as advised on label. Do not drive or operate heavy machinery while taking. Take Extra Strength Tylenol over the counter throughout the day for pain. Take as advised on label. - Post Discharge Activity Work/Back to School Note: Back to Work
--- NOTE | 2019-10-14 22:12 | PDOC ---
Attending Attestation - Resident Resident Name: Josefa Gil - ED Attending Attestation I have performed the following: I have examined & evaluated the patient, The case was reviewed & discussed with the resident, I agree w/resident's findings & plan, Exceptions are as noted - HPI HPI: 10/14/19 22:10 24-year-old female was diagnosed with a 4 mm stone right UVJ on October 07 and had follow-up appointment with Dr. Petersen today. Upon arriving at the office she explained that she still had pain and hematuria and had been taking ibuprofen. Dr. Petersen said he could not do the lithotripsy because she has been on NSAIDs and she should have stopped the NSAIDs 7 days prior to procedure. Initially she is supposed to have a CAT scan stone protocol done as an outpatient tomorrow but because she is increasing symptomatic she came to the emergency department - Physicial Exam PE: 10/14/19 23:22 wnwd 24 yo female with c/o hematuria and rt flank pain head ncat neck supple lungs cta b/l cvs [id number] abd nontedner rt cva tenderness skin warm and dry neuro axox3,ambulatory - Medical Decision Making 10/14/19 22:12 History of 4 mm right UVJ stone with hematuria and pain Dr. Petersen wants a repeat CAT scan following a stone protocol, UA and labs 10/15/19 01:[address] showed there has been little movement of the 4 mm stone it moved slightly distally from his placement on October 07 ,it's still near the UVJ and there is mild hydronephrosis Patient wrote for pain medications and will again follow-up with Dr. Petersen
[2019-10-14] MEDS ORDERED: ACETAMINOPHEN INJECTION 100 ML IVPB ONE (22:57)
[2019-10-14 23:05] LABS: EPI CELLS 0.8 /HPF (0-5/HPF); HYALINE CASTS 0 /lpf (0-8); URINE APPEARANCE CLOUDY; URINE BACTERIA 19.6 /hpf (NEGATIVE); URINE BILIRUBIN NEGATIVE (NEGATIVE); URINE COLOR YELLOW; URINE GLUCOSE (UA) NEGATIVE (NEGATIVE); URINE KETONE NEGATIVE (NEGATIVE); URINE LEUK ESTERASE NEGATIVE (NEGATIVE); URINE NITRITE NEGATIVE (NEGATIVE); URINE PROTEIN NEGATIVE (NEGATIVE); URINE RBC 118 /hpf (0-4); URINE WBC 1 /hpf (0-5)
[2019-10-14 23:31] LABS: BASO % 0.3 % (0-2.0); EOS % 2.9 % (0-4.5); HEMATOCRIT 37.7 % (32.4-45.2); HEMOGLOBIN 12.6 GM/dL (10.7-15.3); LYMPH % 41.5 % (8-40); MCH 31.4 pg (25.7-33.7); MCHC 33.5 g/dl (32.0-36.0); MEAN CELL VOLUME 93.7 fl (80-96); MEAN PLT VOLUME 8.5 fl (7.5-11.1); NEUT % 46.3 % (42.8-82.8); PLATELET COUNT 237 K/MM3 (134-434); RBC 4.02 M/mm3 (3.60-5.2); RDW 13.4 % (11.6-15.6); WHITE BLOOD COUNT 5.2 K/mm3 (4.0-10.0)
[2019-10-14 23:56] LABS: BILIRUBIN,TOTAL 0.5 mg/dL (0.2-1); BLOOD UREA NITROGEN 8.9 mg/dL (7-18); CALCIUM 9.2 mg/dL (8.5-10.1); CREATININE 0.7 mg/dL (0.55-1.3); INR 1.06 (0.83-1.09); POTASSIUM 4.2 mmol/L (3.5-5.1); PROTHROMBIN TIME (PATIENT) 12.5 SEC (9.7-13.0); TOT PROT 7.8 g/dl (6.4-8.2)
[2019-10-15 01:43] VITALS: BP 110/78; PULSE 69
== END 2019-10-15 01:41 | disposition home or self-care (01) ==
LOC: JER 19:04
PROC: 3E033NZ Introduction of Analgesics, Hypnotics, Sedatives into Peripheral Vein, Percutaneous Approach (ICD-10-PCS; principal; 2019-10-14)
DX: N20.0 Calculus of kidney (principal)
CPT/HCPCS: 36415; 74176-TC; 80053; 81003; 84703; 85025; 85610; 87086; 96374; 99285-25; J0131; J7030

== ENCOUNTER 2019-10-17 10:20 | Inpatient (IN) | payer OTHER ==
[2019-10-17] MEDS ORDERED: SODIUM CHLORIDE 1,000 ML IV STA (11:05)
[2019-10-17] MEDS ORDERED: morphine CARPU-JECT 4 MG/1 ML DISP.SYRIN IVPUSH ONE ×2 (11:19→15:41)
[2019-10-17] MEDS ORDERED: morphine SULFATE 4 MG/ML VIAL ONE ×2 (12:07→16:24)
--- NOTE | 2019-10-17 12:18 | EKG ---
Test Reason : Blood Pressure : / mmHG Vent. Rate : 055 BPM Atrial Rate : 055 BPM P-R Int : 154 ms QRS Dur : 104 ms QT Int : 400 ms P-R-T Axes : 041 065 046 degrees QTc Int : 382 ms SINUS BRADYCARDIA RSR' OR QR PATTERN IN V1 SUGGESTS RIGHT VENTRICULAR CONDUCTION DELAY WHEN COMPARED WITH ECG OF 27-MAY-2015 18:18, VENT. RATE HAS DECREASED BY 29 BPM Confirmed by ARTIE MILLER MD ([id number]) on 10/17/2019 12:18:02 PM Referred By: Confirmed By:ARTIE MILLER MD
[2019-10-17 12:25] LABS: BASO % 0.3 % (0-2.0); HEMATOCRIT 36.7 % (32.4-45.2); HEMOGLOBIN 12.5 GM/dL (10.7-15.3); LYMPH % 30.1 % (8-40); MCH 31.9 pg (25.7-33.7); MEAN CELL VOLUME 93.9 fl (80-96); MEAN PLT VOLUME 8.3 fl (7.5-11.1); MONO % 6.5 % (3.8-10.2); NEUT % 61.1 % (42.8-82.8); PLATELET COUNT 213 K/MM3 (134-434); RBC 3.91 M/mm3 (3.60-5.2); RDW 13.3 % (11.6-15.6)
[2019-10-17 12:39] LABS: INR 1.13 (0.83-1.09); PROTHROMBIN TIME (PATIENT) 13.3 SEC (9.7-13.0)
[2019-10-17 12:42] LABS: ACTIVATED PTT 34.7 SECONDS (25.2-36.5)
--- NOTE | 2019-10-17 12:47 | PDOC ---
Documentation entered by Brittaney Wong SCRIBE, acting as scribe for Zahraa Torres MD. Zahraa Torres MD: This documentation has been prepared by the Marvin barrios Nirvannie, SCRIBE, under my direction and personally reviewed by me in its entirety. I confirm that the documentation accurately reflects all work, treatment, procedures, and medical decision making performed by me. History of Present Illness - General Chief Complaint: Pain Stated Complaint: PAIN Time Seen by Provider: 10/17/19 11:04 History Source: Patient Exam Limitations: No Limitations - History of Present Illness Initial Comments: 10/17/19 12:10 HPI: 24-year-old female with h/o asthma, kidney stones, was diagnosed with obstructed 4 mm stone right UVJ on October 08 s/p lithotripsy with Dr Petersen yesterday, and GERD (s/p endoscopy) who presents to the ED with, persistent lower abdominal pain and hematuria. As per patient, she was evaluated in the ED initially 10/08 at which time she was diagnosed to have a 4mm R UPJ stone, nonobstructing left renal stone, and hydronephrosis on CT and UTI (prescribed Keflex BID x 7 days). Patient was evaluated once again on the for persistent pain and hematuria. Patient at that time had a repeat CT scan which depicted progression within the R UPJ and worsening hydronephrosis. Patient at that time was discharged on Percocet and Zofran with urology follow-up. She notes to have had a lithotripsy yesterday and since her procedure she has been experiencing persistent pain and hematuria described as large clots. Patient notes taking her Percocet for pain relief, however, it only alleviates her pain for approximately an hour. She notes waking up today with pain worse than yesterday or prior to lithotripsy. She notes taking Percocet and Zofran, with minimal relief (only lasts approximately an hour). Patient notes one episode of low grade/subjective fevers and chills yesterday (Tmax 100F) which has since been resolved and mild nausea. Patient was advised to refrain from NSAID usage a week prior and post lithotripsy. Patient is currently on the monthly Depo shot thus, notes she cannot be . She denies any dysuria. Denies chest pain, SOB, palpitation, dizziness, weakness , V, D, bladder and bowel problems, leg swelling, +recent lithotripsy/instrumentation Allergies: Shellfish Past Medical History: asthma, kidney stones, was diagnosed with obstructed 4 mm stone right UVJ on October 08 s/p lithotripsy with Dr Petersen yesterday, and GERD (s/p endoscopy) Social history: Lives with family. No tobacco, ETOH or drug use. Surgical history: Endoscopy Meds: as documented in EMR Urologist: Dr. Petersen Review of systems: Constitutional: + fevers + chills. HEENT: no headache +dizziness. CVS: no cp or syncope. Resp: no sob. No cough. Gastrointestinal: + abdominal pain. + nausea. no vomiting. no diarrhea Genitourinary: + hematuria. MUSCULOSKELETAL: No joint pain and swelling. No neck or back pain. SKIN: no redness or skin changes, no discharge, no rash. No wounds. Hematologic: no easy bruising/bleeding. NEUROLOGIC: No headache, LOC or altered mental status. No weakness, numbness or tingling. Psych: no anxiety or depression Allergic/Immunologic: no allergies All other systems reviewed and negative, or as documented in HPI. Physical Exam: General: Well appearing, awake and alert, NAD. HEENT: NCAT, PERRL, EOMI, clear conjunctiva, anicteric, moist mucous membranes , clear oropharynx, no oral lesions.. Neck: neck supple, FROM Resp: CTAB, normal and even respirations, no respiratory distress CVS: RRR, no murmurs, 2+ peripheral pulses throughout, no peripheral edema Abdomen: soft, nondistended, no rebound or guarding. +right CVAT. +right flank TTP. Back: nontender, normal inspection and ROM, +right CVAT MSK: no edema, ULLOA x4, ROM intact. No clubbing or cyanosis. normal bulk and tone. Extremities: no calf tenderness Neuro: alert Skin: warm and well perfused, cap refill <2 sec, normal color, no rash, no pallor 10/17/19 12:41 Past History - Past Medical History Allergies/Adverse Reactions: Allergies Allergy/AdvReac Type Severity Reaction Status Date / Time shellfish derived Allergy Hives Verified 10/17/19 10:29 Home Medications: Ambulatory Orders Oxycodone HCl/Acetaminophen [Percocet 5-325 mg Tablet] 1 tab PO BID PRN #4 tablet MDD 2 tabs 10/15/19 Asthma: Yes COPD: No GI Disorders: Yes (acid reflux) - Surgical History Abdominal Surgery: Yes (lithotripsy) - Reproductive History (#): 2 Para: 0 Spontaneous : 2 - Psycho Social/Smoking Cessation Hx Smoking History: Unknown if ever smoked Have you smoked in the past 12 months: Yes Number of Cigarettes Smoked Daily: 2 Hx Alcohol Use: No Drug/Substance Use Hx: No Substance Use Type: None *Physical Exam - Vital Signs Last Vital Signs Temp Pulse Resp BP Pulse Ox 98.3 F 78 20 93/63 99 10/17/19 10:31 10/17/19 10:31 10/17/19 10:31 10/17/19 10:31 10/17/19 10:31 Heart Score/ECG Review #1 ECG reviewed & interpreted by me at: 11:45 General ECG Interpretation: Sinus Rhythm, Normal Intervals 10/17/19 13:08 EKG sinus bradycardia 55 bpm, no interval abnormalities, narrow QRS, ST and T wave segments and morphology normal. Can be normal finding for otherwise healthy young patient ED Treatment Course - LABORATORY CBC & Chemistry Diagram: 10/17/19 11:55 10/17/19 11:55 - ADDITIONAL ORDERS Additional order review: Laboratory Results 10/17/19 11:55 PT with INR 13.30 H INR 1.13 H 10/17/19 11:55 RBC 3.91 MCV 93.9 MCHC 34.0 RDW 13.3 MPV 8.3 Neutrophils % 61.1 D Lymphocytes % 30.1 D Monocytes % 6.5 Eosinophils % 2.0 Basophils % 0.3 - Medications Given in the ED: ED Medications Discontinued Medications Generic Name Dose Route Start Last Admin Trade Name Freq PRN Reason Stop Dose Admin Sodium Chloride 1,000 mls @ 1,000 mls/hr 10/17/19 11:05 10/17/19 12:24 Normal Saline - IV 10/17/19 12:04 1,000 mls/hr ASDIR STA Administration Morphine Sulfate 4 mg 10/17/19 11:19 10/17/19 12:24 Morphine Injection - IVPUSH 10/17/19 11:20 4 mg ONCE ONE Administration Medical Decision Making - Medical Decision Making 10/17/19 12:43 Vital Signs Temp Pulse Resp BP Pulse Ox 98.3 F 78 20 93/63 99 10/17/19 10:31 10/17/19 10:31 10/17/19 10:31 10/17/19 10:31 10/17/19 10:31 DDx abdominal pain: Renal colic, biliary colic, metabolic/electrolyte derangements. GERD, PUD, esophageal spasm, pancreatitis, hepatitis, constipation , colitis, gastroenteritis, cholecystitis, UTI, pyelonephritis, ileus, SBO, medication side effect, hernia, appendicitis, diverticulitis, mesenteric ischemia. msk strain, mesenteric adenitis, psoas abscess. Clinically the patient presents with symptomatic ureterolithiasis (kidney stones ), with known right UPJ stone measuring 4mm, x 2 ED visits, s/p lithotripsy yesteday with Dr Najera. IV pain medications, antiemetics, and IV fluids were given. A CT Abdomen/Pelvis was done and repeated twice last on 10/14/19, which showed worsening obstruction/right UPJ stone 4mm, hence the lithotripsy yesterday, procedure uncomplicated. The patient's labs were significant for normal wbc ct and cr funciton.. With pain medication the patient improved significantly. 10/17/19 15:55 CT 4 mm nonobstructing left renal pole stone similar position. Right proximal ureteral stone just distal to the UPJ unchanged measuring 3 mm as well, slightly decreased in size however with interval thickening other surrounding ureteral wall and significant stranding and fat with moderate right hydronephrosis worsened since previous CT scan done on 08/13/2019, which could be postprocedural inflammation or ureteral wall hematoma. pt had episode of hematuria here no clots here pending UA for infection 10/17/19 16:46 spoke with prashant Olson ble to observation admit. serial exams, monitor hematuria NPO after midnight, small chance for stent if intractible pain despite maximal conservative therapy and pain control has received morphine 4mg x2 doses. admitting to Dr Canas, s/o to resident team for UPJ, failed outpatient therapy, post procedure pain and intractible pain despite oral meds. Discharge - Discharge Information Problems reviewed: Yes Clinical Impression/Diagnosis: Hydronephrosis due to obstruction of ureter, Ureteropelvic junction calculus, Hematoma of genitourinary system after genitourinary system procedure Condition: Fair - Admission Yes - Follow up/Referral - Patient Discharge Instructions - Post Discharge Activity
[2019-10-17 12:51] LABS: BILIRUBIN,TOTAL 0.6 mg/dL (0.2-1); BLOOD UREA NITROGEN 8.2 mg/dL (7-18); CALCIUM 9.1 mg/dL (8.5-10.1); CREATININE 0.7 mg/dL (0.55-1.3); POTASSIUM 4.2 mmol/L (3.5-5.1); TOT PROT 7.2 g/dl (6.4-8.2)
[2019-10-17] MEDS ORDERED: ACETAMINOPHEN 1000 MG/100 ML VIAL (NON FORMULARY) IVPB ONE (16:48)
[2019-10-17 17:36] LABS: EPI CELLS 0.9 /HPF (0-5/HPF); HYALINE CASTS 3 /lpf (0-8); URINE APPEARANCE CLOUDY; URINE BACTERIA 6.5 /hpf (NEGATIVE); URINE BILIRUBIN NEGATIVE (NEGATIVE); URINE COLOR RED; URINE GLUCOSE (UA) NEGATIVE (NEGATIVE); URINE KETONE 2+ (NEGATIVE); URINE LEUK ESTERASE TRACE (NEGATIVE); URINE NITRITE NEGATIVE (NEGATIVE); URINE PROTEIN 1+ (NEGATIVE); URINE RBC 2089 /hpf (0-4); URINE UROBILINOGEN 0.2 mg/dL (0.2-1.0); URINE WBC 12 /hpf (0-5)
[2019-10-17] MEDS ORDERED: ACETAMINOPHEN 325 MG TABLET (FP) PO PRN (17:49)
[2019-10-17] MEDS ORDERED: oxyCODONE HCL 5 MG TABLET PO PRN (17:49)
[2019-10-17] MEDS ORDERED: SODIUM CHLORIDE 1,000 ML IV SCH (18:00)
[2019-10-17] MEDS ORDERED: DEXTROSE 5%-NORMAL SALINE 1,000 ML IV SCH (18:00)
--- NOTE | 2019-10-17 18:16 | HP ---
CHIEF COMPLAINT:Right flank pain PCP:none HISTORY OF PRESENT ILLNESS: Patient is a 24 year old female with past medical history of asthma and kidney stones, presented to the ED, due to worsening right flank pain and hematuria that started yesterday. Patient underwent Lithotripsy yesterday (10/16), after she was found to have a Right 4mm UPJ stone. Patient tolerated the procedure well and was discharged the same day. A few hours after surgery, patient started experiencing severe right flank pain, and also noted her urine turning dark red. She took Percocet which provided minimal relief. Today, patient could not tolerate the pain, and came to the ED. Patient reports subjective fevers since last night, but denies any nausea, vomiting, chest pain, SOB, abdominal pain, diarrhea, dysuria or burning. ER course was notable for: (1)CTAP - approx 4mm nonobstructing left renal lower pole stone again seen. Previously visualized stone in the proximal right ureter, just distal to the ureteropelvic junction again seen unchanged in position. It has slightly decreased in size with interval significant thickening of the surrounding/ proximal right ureteral wall, significant stranding of the surrounding fat and moderate right renal hydronephrosis that has significantly worsened since the prior examination. Changes may be related to postprocedural inflammation or ureteral wall hematoma. The mid and distal right ureter appears unremarkable without evidence of a stone. (2)UA - red, 1+LAWSON, 2+ketones, 3+blood, 2089 RBC (3) Recent Travel: denies PAST MEDICAL HISTORY: asthma Gastritis PAST SURGICAL HISTORY: Lithotripsy Social History: Smoking:denies Alcohol:denies Drugs: smokes marijuana lives with 3yo son Family History Mom and Dad are both healthy Allergies shellfish derived Allergy (Verified 10/17/19 10:29) Hives Hives and Swelling HOME MEDICATIONS: Home Medications Medication Instructions Recorded Oxycodone HCl/Acetaminophen 1 tab PO BID PRN #4 tablet MDD 2 10/15/19 [Percocet 5-325 mg Tablet] tabs REVIEW OF SYSTEMS CONSTITUTIONAL: Absent: fever, chills, diaphoresis, generalized weakness, malaise, loss of appetite, weight change HEENT: Absent: rhinorrhea, nasal congestion, throat pain, throat swelling, difficulty swallowing, mouth swelling, ear pain, eye pain, visual changes CARDIOVASCULAR: Absent: chest pain, syncope, palpitations, irregular heart rate, lightheadedness , peripheral edema RESPIRATORY: Absent: cough, shortness of breath, dyspnea with exertion, orthopnea, wheezing, stridor, hemoptysis GASTROINTESTINAL: Absent: abdominal pain, abdominal distension, nausea, vomiting, diarrhea, constipation, melena, hematochezia GENITOURINARY: hematuria, right flank pain Absent: dysuria, frequency, urgency, hesitancy, genital pain MUSCULOSKELETAL: Absent: myalgia, arthralgia, joint swelling, back pain, neck pain SKIN: Absent: rash, itching, pallor HEMATOLOGIC/IMMUNOLOGIC: Absent: easy bleeding, easy bruising, lymphadenopathy, frequent infections ENDOCRINE: Absent: unexplained weight gain, unexplained weight loss, heat intolerance, cold intolerance NEUROLOGIC: Absent: headache, focal weakness or paresthesias, dizziness, unsteady gait, seizure, mental status changes, bladder or bowel incontinence PSYCHIATRIC: Absent: anxiety, depression, suicidal or homicidal ideation, hallucinations. PHYSICAL EXAMINATION Vital Signs - 24 hr 10/17/19 10:31 Temperature 98.3 F Pulse Rate 78 Respiratory 20 Rate Blood Pressure 93/63 O2 Sat by Pulse 99 Oximetry (%) GENERAL: Awake, alert, and fully oriented, in no acute distress. HEAD: Normal with no signs of trauma. EYES:PERRLA, EOMI, sclera anicteric, conjunctiva clear. EARS, NOSE, THROAT: Moist mucous membranes. NECK: Normal range of motion, supple. LUNGS: Breath sounds equal, clear to auscultation bilaterally. HEART: Regular rate and rhythm, normal S1 and S2 without murmur, rub or gallop. ABDOMEN: Soft, nontender, not distended, normoactive bowel sounds. MUSCULOSKELETAL: Normal range of motion at all joints. +Right CVA tenderness. LOWER EXTREMITIES: 2+ pulses, warm, well-perfused.No peripheral edema. NEUROLOGICAL: Cranial nerves II-XII intact. Normal speech. Normal gait. PSYCHIATRIC: Cooperative. Good eye contact. Appropriate mood and affect. SKIN: Warm, dry, normal turgor. Laboratory Results - last 24 hr 10/17/19 10/17/19 10/17/19 11:55 11:55 11:55 WBC 6.0 RBC 3.91 Hgb 12.5 Hct 36.7 MCV 93.9 MCH 31.9 MCHC 34.0 RDW 13.3 Plt Count 213 MPV 8.3 Absolute Neuts (auto) 3.7 Neutrophils % 61.1 D Lymphocytes % 30.1 D Monocytes % 6.5 Eosinophils % 2.0 Basophils % 0.3 Nucleated RBC % 0 PT with INR INR PTT (Actin FS) Sodium 138 Potassium 4.2 Chloride 107 Carbon Dioxide 25 Anion Gap 5 L BUN 8.2 Creatinine 0.7 Est GFR (CKD-EPI)AfAm 141.54 Est GFR (CKD-EPI)NonAf 122.12 Random Glucose 77 Lactic Acid 0.7 Calcium 9.1 Total Bilirubin 0.6 AST 14 L ALT 19 Alkaline Phosphatase 88 Total Protein 7.2 Albumin 4.0 Serum , Qual Urine Color Urine Appearance Urine pH Ur Specific [place] Urine Protein Urine Glucose (UA) Urine Ketones Urine Blood Urine Nitrite Urine Bilirubin Urine Urobilinogen Ur Leukocyte Esterase Urine WBC (Auto) Urine RBC (Auto) Urine Casts (Auto) U Epithel Cells (Auto) Urine Bacteria (Auto) Blood Type Antibody Screen 10/17/19 10/17/19 10/17/19 11:55 11:55 11:55 WBC RBC Hgb Hct MCV MCH MCHC RDW Plt Count MPV Absolute Neuts (auto) Neutrophils % Lymphocytes % Monocytes % Eosinophils % Basophils % Nucleated RBC % PT with INR 13.30 H INR 1.13 H PTT (Actin FS) 34.7 Sodium Potassium Chloride Carbon Dioxide Anion Gap BUN Creatinine Est GFR (CKD-EPI)AfAm Est GFR (CKD-EPI)NonAf Random Glucose Lactic Acid Calcium Total Bilirubin AST ALT Alkaline Phosphatase Total Protein Albumin Serum , Qual Negative Urine Color Urine Appearance Urine pH Ur Specific [place] Urine Protein Urine Glucose (UA) Urine Ketones Urine Blood Urine Nitrite Urine Bilirubin Urine Urobilinogen Ur Leukocyte Esterase Urine WBC (Auto) Urine RBC (Auto) Urine Casts (Auto) U Epithel Cells (Auto) Urine Bacteria (Auto) Blood Type O POSITIVE Antibody Screen Negative 10/17/19 16:11 WBC RBC Hgb Hct MCV MCH MCHC RDW Plt Count MPV Absolute Neuts (auto) Neutrophils % Lymphocytes % Monocytes % Eosinophils % Basophils % Nucleated RBC % PT with INR INR PTT (Actin FS) Sodium Potassium Chloride Carbon Dioxide Anion Gap BUN Creatinine Est GFR (CKD-EPI)AfAm Est GFR (CKD-EPI)NonAf Random Glucose Lactic Acid Calcium Total Bilirubin AST ALT Alkaline Phosphatase Total Protein Albumin Serum , Qual Urine Color Red Urine Appearance Cloudy Urine pH 6.0 Ur Specific [place] 1.013 Urine Protein 1+ H Urine Glucose (UA) Negative Urine Ketones 2+ H Urine Blood 3+ H Urine Nitrite Negative Urine Bilirubin Negative Urine Urobilinogen 0.2 Ur Leukocyte Esterase Trace Urine WBC (Auto) 12 Urine RBC (Auto) 2089 Urine Casts (Auto) 3 U Epithel Cells (Auto) 0.9 Urine Bacteria (Auto) 6.5 Blood Type Antibody Screen ASSESSMENT/PLAN: Patient is a 24 year old female with past medical history of asthma and kidney stones, presented to the ED, due to worsening right flank pain and hematuria that started yesterday. #Right flank pain 2/2 kidney stone -CTAP - approx 4mm nonobstructing left renal lower pole stone again seen. Previously visualized stone in the proximal right ureter, just distal to the ureteropelvic junction again seen unchanged in position. It has slightly decreased in size with interval significant thickening of the surrounding/ proximal right ureteral wall, significant stranding of the surrounding fat and moderate right renal hydronephrosis that has significantly worsened since the prior examination. Changes may be related to postprocedural inflammation or ureteral wall hematoma. The mid and distal right ureter appears unremarkable without evidence of a stone. -Urology (Dr. Petersen) consulted. Recommendations appreciated. -will keep patient NPO after midnight for possible stent placement tomorrow -IVF hydration -pain control with tylenol and morphine as patient could not take NSAIDs due to gastritis #FEN -IV NS @100cc/hr -Electrolytes wnl, routine bmp monitoring -Regular diet, NPO after midnight #Prophylaxis -SCDs, early ambulation #Disposition -full code -admit to med surg Visit type - Emergency Visit Emergency Visit: Yes ED Registration Date: 10/17/19 Care time: The patient presented to the Emergency Department on the above date and was hospitalized for further evaluation of their emergent condition. - New Patient This patient is new to me today: Yes Date on this admission: 10/17/19 - Critical Care Critical Care patient: No ATTENDING PHYSICIAN STATEMENT I saw and evaluated the patient. I reviewed the resident's note and discussed the case with the resident. I agree with the resident's findings and plan as documented. SUBJECTIVE: OBJECTIVE: ASSESSMENT AND PLAN:
--- NOTE | 2019-10-17 18:29 | PN ---
Teaching Attending Note Name of Resident: Felipa Jane ATTENDING PHYSICIAN STATEMENT I saw and evaluated the patient. I reviewed the resident's note and discussed the case with the resident. I agree with the resident's findings and plan as documented. SUBJECTIVE: This is a 24 year old woman with a history of asthma, kidney stones who comes to the ED complaining of right flank pain with hematuria. She underwent ESWL yesterday for a 4 mm right UPJ stone. A few hours later, she had severe right flank pain and noted her urine was dark red. The pain persisted despite Percocet. OBJECTIVE: Vital Signs Period Temp Pulse Resp BP Sys/Robertson Pulse Ox Last 24 Hr 98.3 F 78 20 93/63 99 HEART: S1S2, RRR LUNGS: Clear ABDOMEN: Soft, non-tender, non-distended, normal BS, (+) right CVA tenderness EXTREMITIES: No edema Laboratory Tests 10/17/19 10/17/19 10/17/19 11:55 11:55 11:55 WBC 6.0 RBC 3.91 Hgb 12.5 Hct 36.7 MCV 93.9 MCH 31.9 MCHC 34.0 RDW 13.3 Plt Count 213 MPV 8.3 Absolute Neuts (auto) 3.7 Neutrophils % 61.1 D Lymphocytes % 30.1 D Monocytes % 6.5 Eosinophils % 2.0 Basophils % 0.3 Nucleated RBC % 0 PT with INR INR PTT (Actin FS) Sodium 138 Potassium 4.2 Chloride 107 Carbon Dioxide 25 Anion Gap 5 L BUN 8.2 Creatinine 0.7 Est GFR (CKD-EPI)AfAm 141.54 Est GFR (CKD-EPI)NonAf 122.12 Random Glucose 77 Lactic Acid 0.7 Calcium 9.1 Total Bilirubin 0.6 AST 14 L ALT 19 Alkaline Phosphatase 88 Total Protein 7.2 Albumin 4.0 Serum , Qual Urine Color Urine Appearance Urine pH Ur Specific [place] Urine Protein Urine Glucose (UA) Urine Ketones Urine Blood Urine Nitrite Urine Bilirubin Urine Urobilinogen Ur Leukocyte Esterase Urine WBC (Auto) Urine RBC (Auto) Urine Casts (Auto) U Epithel Cells (Auto) Urine Bacteria (Auto) Blood Type Antibody Screen 10/17/19 10/17/19 10/17/19 11:55 11:55 11:55 WBC RBC Hgb Hct MCV MCH MCHC RDW Plt Count MPV Absolute Neuts (auto) Neutrophils % Lymphocytes % Monocytes % Eosinophils % Basophils % Nucleated RBC % PT with INR 13.30 H INR 1.13 H PTT (Actin FS) 34.7 Sodium Potassium Chloride Carbon Dioxide Anion Gap BUN Creatinine Est GFR (CKD-EPI)AfAm Est GFR (CKD-EPI)NonAf Random Glucose Lactic Acid Calcium Total Bilirubin AST ALT Alkaline Phosphatase Total Protein Albumin Serum , Qual Negative Urine Color Urine Appearance Urine pH Ur Specific [place] Urine Protein Urine Glucose (UA) Urine Ketones Urine Blood Urine Nitrite Urine Bilirubin Urine Urobilinogen Ur Leukocyte Esterase Urine WBC (Auto) Urine RBC (Auto) Urine Casts (Auto) U Epithel Cells (Auto) Urine Bacteria (Auto) Blood Type O POSITIVE Antibody Screen Negative 10/17/19 16:11 WBC RBC Hgb Hct MCV MCH MCHC RDW Plt Count MPV Absolute Neuts (auto) Neutrophils % Lymphocytes % Monocytes % Eosinophils % Basophils % Nucleated RBC % PT with INR INR PTT (Actin FS) Sodium Potassium Chloride Carbon Dioxide Anion Gap BUN Creatinine Est GFR (CKD-EPI)AfAm Est GFR (CKD-EPI)NonAf Random Glucose Lactic Acid Calcium Total Bilirubin AST ALT Alkaline Phosphatase Total Protein Albumin Serum , Qual Urine Color Red Urine Appearance Cloudy Urine pH 6.0 Ur Specific [place] 1.013 Urine Protein 1+ H Urine Glucose (UA) Negative Urine Ketones 2+ H Urine Blood 3+ H Urine Nitrite Negative Urine Bilirubin Negative Urine Urobilinogen 0.2 Ur Leukocyte Esterase Trace Urine WBC (Auto) 12 Urine RBC (Auto) 2089 Urine Casts (Auto) 3 U Epithel Cells (Auto) 0.9 Urine Bacteria (Auto) 6.5 Blood Type Antibody Screen Home Medications Medication Instructions Recorded Oxycodone HCl/Acetaminophen 1 tab PO BID PRN #4 tablet MDD 2 10/15/19 [Percocet 5-325 mg Tablet] tabs ASSESSMENT AND PLAN: This is a 24 year old woman with a history of asthma, kidney stones who p resented to the ED with right flank pain and hematuria after ESWL. 1. Obstructing right UPJ stone - CTAP shows slightly smaller right UPJ stone with interval significant thickening of the surrounding/proximal right ureteral wall, significant stranding of the surrounding fat and moderate right renal hydronephrosis that has significantly worsened since the prior examination, possibly related to p ostprocedural inflammation or ureteral wall hematoma - IV fluid - Pain control - Urology consult for stent placement 2. Asthma - Stable
[2019-10-17] MEDS ORDERED: ONDANSETRON 4 MG/2 ML VIAL IVPUSH PRN (18:30)
[2019-10-17] MEDS ORDERED: ACETAMINOPHEN INJECTION 100 ML IVPB ONE ×2 (19:03→19:15)
--- NOTE | 2019-10-17 20:07 | CON.GU ---
Consult - History of Present Illness History of Present Illness: 24 yo female s/p ESWL of Rt prox ureteral stone yesterday, now admitted with persistant colic. Repeat CT shows stone to be slightly smaller in size and a bit inferior in location. There is periureteral edema. No fever, chills - Past Medical History ...LMP: 11/10/14 - Alcohol/Substance Use Hx Alcohol Use: No - Smoking History Smoking history: Unknown if ever smoked Have you smoked in the past 12 months: Yes Aproximately how many cigarettes per day: 2 Home Medications - Allergies Allergies/Adverse Reactions: Allergies Allergy/AdvReac Type Severity Reaction Status Date / Time shellfish derived Allergy Hives Verified 10/17/19 10:29 - Home Medications Home Medications: Ambulatory Orders Oxycodone HCl/Acetaminophen [Percocet 5-325 mg Tablet] 1 tab PO BID PRN #4 tablet MDD 2 tabs 10/15/19 Review of Systems - Review of Systems Genitourinary: reports: Hematuria Physical Exam- Vital Signs: Vital Signs Temperature 98.3 F 10/17/19 10:31 Pulse Rate 78 10/17/19 10:31 Respiratory Rate 20 10/17/19 10:31 Blood Pressure 93/63 10/17/19 10:31 O2 Sat by Pulse Oximetry (%) 99 10/17/19 10:31 Renal/: Yes: Hematuria Labs: CBC, BMP 10/17/19 11:55 10/17/19 11:55 Imaging - Results Cat Scan: Image Reviewed Problem List - Problems (1) Right ureteral stone Assessment/Plan: treatment options reviewed, if pain persists will plan for cysto/rt stent placement in am since pt still would like to go on her trip to [place] in 2 days Code(s): N20.1 - CALCULUS OF URETER
[2019-10-17] MEDS ORDERED: oxyCODONE HCL 5 MG TABLET ONE (20:42)
[2019-10-17 23:31] VITALS: BMI 20.5
[2019-10-18] MEDS ORDERED: PROPOFOL 20 ML ONE (06:53)
[2019-10-18] MEDS ORDERED: MIDAZOLAM HCL 2 MG/2 ML SINGLE DOSE VIAL ONE (06:54)
[2019-10-18] MEDS ORDERED: ceFAZolin SODIUM 1 GM VIAL IVPB ONE (07:40)
--- NOTE | 2019-10-18 07:54 | OP ---
Operative Note - Note: Operative Date: 10/18/19 Pre-Operative Diagnosis: RPU stone Operation: cysto/rt stent Post-Operative Diagnosis: Same as Pre-op Estimated Blood Loss (mls): 0 Drains & Tubes with Location: 6fr 24cm stent Operative Report Dictated: Yes
[2019-10-18] MEDS ORDERED: ACETAMINOPHEN 1000 MG/100 ML VIAL (NON FORMULARY) IVPB PRN ×2 (07:56)
[2019-10-18] MEDS ORDERED: oxyCODONE HCL 5 MG TABLET PO PRN (07:56)
[2019-10-18] MEDS ORDERED: MORPHINE SULFATE 2 MG/ML VIAL IVPUSH PRN ×2 (07:56)
[2019-10-18] MEDS ORDERED: ACETAMINOPHEN 325 MG TABLET (FP) PO PRN (07:56)
[2019-10-18] MEDS ORDERED: SODIUM CHLORIDE 1,000 ML IV SCH (07:56)
[2019-10-18] MEDS ORDERED: ONDANSETRON 4 MG/2 ML VIAL IVPUSH PRN (07:56)
--- NOTE | 2019-10-18 08:24 | OP ---
DATE OF OPERATION: 10/18/2019 PREOPERATIVE DIAGNOSIS: Right proximal ureteral stone. POSTOPERATIVE DIAGNOSIS: Right proximal ureteral stone. PROCEDURE: Cystoscopy, retrograde pyelogram, and ureteral stent placement. SURGEON: Catrachita Myers MD INDICATIONS: Patient is a 24-year-old female who is status post ESWL with a right proximal ureteral stone on October 16, 2019. On October 17, 2019; however, she presented with recurrence of flank pain. Repeat CT scan showed slight decrease in the size of the stone with some periureteral edema and hydronephrosis. Due to the patient's persistent pain, treatment options of observation versus stent placement were reviewed, and she would like to undergo stent placement. Risks, benefits, and alternatives discussed in detail including bleeding, infection, potential persistent colic, need for additional procedure since the stent would not be treating the stone, just bypassing it. DESCRIPTION OF PROCEDURE: After informed consent was obtained, patient was taken to the OR, placed supine on the operating table. With cardiac monitoring administered, general anesthesia established, she was prepped and draped in dorsal lithotomy position. The 22 sheath cystoscope was inserted into the urethra and into the bladder without difficulty. Attention was turned to the right ureteral orifice. This was intubated with ureteral catheter. Contrast was injected for retrograde pyelogram. There was hydroureteronephrosis to the level of the proximal ureter where a small stone was seen. Guidewire was advanced beyond the stone, and a 6-Romanian 24-cm double pigtail stent was then advanced in a monorail fashion. Fluoroscopy confirmed stent to be in good position. Patient awoken from anesthesia and transferred to recovery room in stable condition. There were no complications. There was no blood loss. CATRACHITA MYERS M.D. [id number]
[2019-10-18 10:04] VITALS: PULSE 51; TEMP 97.6
[2019-10-18 10:31] VITALS: BP 138/78
--- NOTE | 2019-10-18 12:35 | DS ---
Physical Exam: SUBJECTIVE: Patient seen and examined OBJECTIVE: Vital Signs Period Temp Pulse Resp BP Sys/Robertson Pulse Ox Last 24 Hr 97.2 F-98.0 F 51-86 16-20 94-138/56-79 97-100 PHYSICAL EXAM GENERAL: The patient is awake, alert, and fully oriented, in no acute distress. HEAD: Normal with no signs of trauma. EYES: PERRL, extraocular movements intact, sclera anicteric, conjunctiva clear. ENT: Ears normal, nares patent, oropharynx clear without exudates, moist mucous membranes. NECK: Trachea midline, full range of motion, supple. LUNGS: Breath sounds equal, clear to auscultation bilaterally, no wheezes, no crackles, no accessory muscle use. HEART: Regular rate and rhythm, S1, S2 without murmur, rub or gallop. ABDOMEN: Soft, nontender, nondistended, normoactive bowel sounds, no guarding, no rebound, no hepatosplenomegaly, no masses. EXTREMITIES: 2+ pulses, warm, well-perfused, no edema. NEUROLOGICAL: Cranial nerves II through XII grossly intact. Normal speech, gait not observed. PSYCH: Normal mood, normal affect. SKIN: Warm, dry, normal turgor, no rashes or lesions noted. LABS Laboratory Results - last 24 hr 10/17/19 10/17/19 10/17/19 11:55 11:55 11:55 PT with INR 13.30 H INR 1.13 H PTT (Actin FS) 34.7 Sodium 138 Potassium 4.2 Chloride 107 Carbon Dioxide 25 Anion Gap 5 L BUN 8.2 Creatinine 0.7 Est GFR (CKD-EPI)AfAm 141.54 Est GFR (CKD-EPI)NonAf 122.12 Random Glucose 77 Lactic Acid 0.7 Calcium 9.1 Total Bilirubin 0.6 AST 14 L ALT 19 Alkaline Phosphatase 88 Total Protein 7.2 Albumin 4.0 Serum , Qual Urine Color Urine Appearance Urine pH Ur Specific [place] Urine Protein Urine Glucose (UA) Urine Ketones Urine Blood Urine Nitrite Urine Bilirubin Urine Urobilinogen Ur Leukocyte Esterase Urine WBC (Auto) Urine RBC (Auto) Urine Casts (Auto) U Epithel Cells (Auto) Urine Bacteria (Auto) Blood Type Antibody Screen 10/17/19 10/17/19 10/17/19 11:55 11:55 16:11 PT with INR INR PTT (Actin FS) Sodium Potassium Chloride Carbon Dioxide Anion Gap BUN Creatinine Est GFR (CKD-EPI)AfAm Est GFR (CKD-EPI)NonAf Random Glucose Lactic Acid Calcium Total Bilirubin AST ALT Alkaline Phosphatase Total Protein Albumin Serum , Qual Negative Urine Color Red Urine Appearance Cloudy Urine pH 6.0 Ur Specific [place] 1.013 Urine Protein 1+ H Urine Glucose (UA) Negative Urine Ketones 2+ H Urine Blood 3+ H Urine Nitrite Negative Urine Bilirubin Negative Urine Urobilinogen 0.2 Ur Leukocyte Esterase Trace Urine WBC (Auto) 12 Urine RBC (Auto) 2089 Urine Casts (Auto) 3 U Epithel Cells (Auto) 0.9 Urine Bacteria (Auto) 6.5 Blood Type O POSITIVE Antibody Screen Negative HOSPITAL COURSE: Date of Admission:10/17/19 Date of Discharge: 10/18/19 Discharge Summary Problems reviewed: Yes Reason For Visit: HEMATOMA OF GENITOURINARY SYSTEM AFTER PROCEDURE Current Active Problems Hematoma of genitourinary system after genitourinary system procedure (Acute) Hydronephrosis due to obstruction of ureter (Acute) Right ureteral stone (Acute) Ureteropelvic junction calculus (Acute) Condition: Improved - Instructions Diet, Activity, Other Instructions: You were admitted to [facility] on October 17 after coming to the ER with flank pain and blood in your urine caused by a kidney stone. On October 18, Dr. Petersen did a cystoscopy and inserted a right ureteral stent to help the stone pass. You are being discharged home on October 18. You may resume your usual diet and activity. You have been prescribed an antibiotic, Ceftin, which you should take twice a day for 5 days. A prescription has been sent to [facility]. Please schedule an appointment with Dr. Petersen for stent removal in 1 week. Disposition: HOME - Home Medications Comprehensive Discharge Medication List: Ambulatory Orders Oxycodone HCl/Acetaminophen [Percocet 5-325 mg Tablet] 1 tab PO BID PRN #4 tablet MDD 2 tabs 10/15/19 Cefuroxime Axetil [Ceftin -] 500 mg PO Q12H #10 tablet 10/18/19
== END 2019-10-18 14:13 | disposition home or self-care (01) | DRG 813 ==
LOC: JER 10:20 → JERBED 16:43 → J6S 21:27
PROVIDERS: ADMIT Internal Medicine; ATTEND Internal Medicine
PROC: BT1DZZZ Fluoroscopy of Right Kidney, Ureter and Bladder (ICD-10-PCS; 2019-10-18)
PROC: 0T768DZ Dilation of Right Ureter with Intraluminal Device, Via Natural or Artificial Opening Endoscopic (ICD-10-PCS; principal; 2019-10-18 08:00)
DX: N99.840 Postprocedural hematoma of a genitourinary system organ or structure following a genitourinary system procedure (principal); Y83.8 Other surgical procedures as the cause of abnormal reaction of the patient, or of later complication, without mention of misadventure at the time of the procedure; N13.2 Hydronephrosis with renal and ureteral calculous obstruction; J45.909 Unspecified asthma, uncomplicated; K21.9 Gastro-esophageal reflux disease without esophagitis
CPT/HCPCS: 36415; 74176-TC; 80053; 81003; 83605; 84703; 85025; 85610; 85730; 86850; 86900; 86901; 93005; 93010; 94760; 99285-25; J0131; J7030

== ENCOUNTER 2020-10-03 09:01 | Emergency (ER) | payer OTHER ==
[2020-10-03 09:28] VITALS: BMI 21.2
[2020-10-03 10:09] LABS: BASO % 0.4 % (0-2.0); EOS % 4.7 % (0-4.5); HEMATOCRIT 38.4 % (32.4-45.2); HEMOGLOBIN 12.8 GM/dL (10.7-15.3); LYMPH % 28.4 % (8-40); MCH 31.7 pg (25.7-33.7); MCHC 33.3 g/dl (32.0-36.0); MEAN CELL VOLUME 95.1 fl (80-96); MEAN PLT VOLUME 8.4 fl (7.5-11.1); MONO % 8.2 % (3.8-10.2); NEUT % 58.3 % (42.8-82.8); PLATELET COUNT 226 K/MM3 (134-434); RBC 4.04 M/mm3 (3.60-5.2); RDW 13.5 % (11.6-15.6); WHITE BLOOD COUNT 5.9 K/mm3 (4.0-10.0)
[2020-10-03 10:14] LABS: EPI CELLS >36 /uL (0-25.1); HYALINE CASTS 1 /uL (0-3.1); PH,URINE 5.5 (5.0-8.0); URINE APPEARANCE CLEAR; URINE BACTERIA 826 /uL (0-1359); URINE BILIRUBIN NEGATIVE (NEGATIVE); URINE COLOR ORANGE; URINE GLUCOSE (UA) NEGATIVE (NEGATIVE); URINE KETONE NEGATIVE (NEGATIVE); URINE LEUK ESTERASE TRACE (NEGATIVE); URINE NITRITE NEGATIVE (NEGATIVE); URINE PROTEIN 1+ (NEGATIVE); URINE RBC 13 /uL (0-23.9); URINE UROBILINOGEN 0.2 mg/dL (0.2-1.0); URINE WBC 49 /uL (0-25.8)
[2020-10-03 11:59] VITALS: BP 110/73; PULSE 84; TEMP 97.8
== END 2020-10-03 11:59 | disposition home or self-care (01) ==
LOC: JER 09:01
DX: O20.0 Threatened abortion (principal)
CPT/HCPCS: 36415; 76817-TC; 81003; 84702; 85025; 86850; 86900; 86901; 87077; 87086; 99284-25

== ENCOUNTER 2020-10-05 16:56 | Emergency (ER) | payer OTHER ==
[2020-10-05 17:36] VITALS: BP 117/68; PULSE 84; TEMP 98; BMI 21.2
[2020-10-05 19:02] LABS: BASO % 0.3 % (0-2.0); HEMATOCRIT 38.1 % (32.4-45.2); HEMOGLOBIN 12.8 GM/dL (10.7-15.3); LYMPH % 34.9 % (8-40); MCH 31.9 pg (25.7-33.7); MCHC 33.5 g/dl (32.0-36.0); MEAN CELL VOLUME 95.2 fl (80-96); MEAN PLT VOLUME 8.7 fl (7.5-11.1); MONO % 8.2 % (3.8-10.2); NEUT % 53.6 % (42.8-82.8); PLATELET COUNT 249 K/MM3 (134-434); RDW 13.3 % (11.6-15.6); WHITE BLOOD COUNT 6.3 K/mm3 (4.0-10.0)
[2020-10-05 19:19] LABS: POTASSIUM 4.2 mmol/L (3.5-5.1)
[2020-10-05 19:21] LABS: BLOOD UREA NITROGEN 11.4 mg/dL (7-18)
[2020-10-05 19:25] LABS: CREATININE 0.5 mg/dL (0.55-1.3)
[2020-10-05 19:32] LABS: INR 1.07 (0.83-1.09); PROTHROMBIN TIME (PATIENT) 12.9 SEC (9.7-13.0)
[2020-10-05 19:35] LABS: ACTIVATED PTT 32.3 SECONDS (25.2-36.5)
[2020-10-05 20:13] LABS: EPI CELLS >36 /uL (0-25.1); HYALINE CASTS 1 /uL (0-3.1); PH,URINE 6.5 (5.0-8.0); URINE APPEARANCE CLOUDY; URINE BACTERIA 867 /uL (0-1359); URINE BILIRUBIN NEGATIVE (NEGATIVE); URINE COLOR ORANGE; URINE GLUCOSE (UA) NEGATIVE (NEGATIVE); URINE KETONE NEGATIVE (NEGATIVE); URINE LEUK ESTERASE TRACE (NEGATIVE); URINE NITRITE NEGATIVE (NEGATIVE); URINE PROTEIN 1+ (NEGATIVE); URINE RBC 208 /uL (0-23.9); URINE WBC 30 /uL (0-25.8)
== END 2020-10-05 20:00 | disposition home or self-care (01) ==
LOC: JER 16:56
DX: O03.9 Complete or unspecified spontaneous abortion without complication (principal)
CPT/HCPCS: 36415; 80048; 81003; 84702; 85025; 85610; 85730; 86850; 86900; 86901; 87077; 87086; 99284-25

== ENCOUNTER 2024-03-20 20:45 | Emergency (ER) | payer OTHER ==
[2024-03-20 20:50] VITALS: BP 110/70; PULSE 61; RESP 20; TEMP 98.6
== END 2024-03-20 23:06 | disposition home or self-care (01) ==
LOC: JER 20:45 → JERFT 20:45
DX: S61.303A Unspecified open wound of left middle finger with damage to nail, initial encounter (principal); R20.0 Anesthesia of skin; Y04.0XXA Assault by unarmed brawl or fight, initial encounter
CPT/HCPCS: 99283-25